=== PATIENT | female | born 1985 ===

== ENCOUNTER → 2017-08-09 | Outpatient (CLI) | payer OTHER ==
--- NOTE | 2017-08-09 15:30 | Diagnostic Imaging Report ---
PROCEDURE: US OB SINGLE FETUS <14 WKS. TECHNIQUE: Multiple Real-time grayscale images were obtained over the gravid uterus in various projections. INDICATION: Bleeding. FINDINGS: There is an intrauterine gestational sac containing a pole. The crown/rump length measurement is 1.3 cm, consistent with a 7 week 5 day gestation. The heart rate was recorded at 146 BPM. No perigestational sac hemorrhage is seen. The gestational sac shape is within normal limits. The ovaries were not visualized due to bowel gas. IMPRESSION: There is a single live IUP of 7 weeks 5 days gestational age. The estimated date of confinement sonographically is 03/23/2018. Dictated by: Dictated on workstation # [id number]
== END ==
LOC: RAD 14:43
PROVIDERS: ATTEND Family Medicine
DX: O46.91 Antepartum hemorrhage, unspecified, first trimester (principal); Z3A.01 Less than 8 weeks gestation of pregnancy
CPT/HCPCS: 76801